=== PATIENT | female | born 1960 | race Caucasian/White ===

== ENCOUNTER 2018-03-18 06:13 | Day surgery (SDC) | payer MEDICAID ==
[~2018-03-18] VITALS: Ht 157.5 cm; Wt 50.3 kg
[~2018-03-18 06:13] MED LIST: ALBUAER3 IN; CITA-73 PO; CYCL1TAB18 PO; GABA300C10 PO; HYDR-531 PO; LORA-654 PO; SIMV-13 PO; TRAZ150T79 PO
[2018-03-18] MEDS ORDERED: VANCOMYCIN HCL 1000 MG VL ONE (06:50)
[2018-03-18] MEDS ORDERED: BUPIVACAINE 0.25% INJ 50ML VIAL ONE (07:20)
[2018-03-18] MEDS ORDERED: LIDOCAINE 1% HCL (LOCAL ANESTH.) INJ 20ML MDV ONE (07:20)
[2018-03-18] MEDS ORDERED: SUCCINYLCHOLINE CHLORIDE 20 MG/ML 10ML VIAL IV ONE (07:22)
[2018-03-18] MEDS ORDERED: LIDOCAINE 1% INJ PF 5ML AMP ONE (07:22)
[2018-03-18] MEDS ORDERED: MIDAZOLAM HCL 1MG/1ML-2 ML VIAL ONE (07:25)
[2018-03-18] MEDS ORDERED: PROPOFOL 10 MG/ML 20 ML IV ONE (07:30)
[2018-03-18] MEDS ORDERED: METOCLOPRAMIDE HCL 5MG/ml INJ 2ml VIAL ONE (07:31)
[2018-03-18] MEDS ORDERED: fentaNYL CITRATE 100 MCG/2 ML VL ONE (07:37)
[2018-03-18] MEDS ORDERED: NALOXONE HCL 0.4 MG/ML VIAL IV PRN (07:45)
[2018-03-18] MEDS ORDERED: HYDROmorphone HCL 2 MG/ML VL IV PRN ×2 (07:45)
[2018-03-18] MEDS ORDERED: ONDANSETRON HCL 4 MG/2 ML VIAL IV ONE (07:45)
[2018-03-18] MEDS ORDERED: ePHEDrine SULFATE 50 MG/ML AMP ONE (08:00)
[2018-03-18 09:26] VITALS: BP 110/71
== END 2018-03-18 09:38 | disposition home or self-care (01) ==
LOC: SUR 06:13
PROVIDERS: ATTEND Orthopaedic Surgery Adult Reconstructive Orthopaedic Surgery
DX: G56.02 Carpal tunnel syndrome, left upper limb (principal); M65.4 Radial styloid tenosynovitis [de Quervain]; F17.210 Nicotine dependence, cigarettes, uncomplicated; J44.9 Chronic obstructive pulmonary disease, unspecified; I34.1 Nonrheumatic mitral (valve) prolapse; E78.00 Pure hypercholesterolemia, unspecified; M19.90 Unspecified osteoarthritis, unspecified site; G62.9 Polyneuropathy, unspecified; Z88.0 Allergy status to penicillin; Z90.49 Acquired absence of other specified parts of digestive tract; Z98.890 Other specified postprocedural states; Z79.891 Long term (current) use of opiate analgesic; Z79.899 Other long term (current) drug therapy; Z82.49 Family history of ischemic heart disease and other diseases of the circulatory system; Z83.3 Family history of diabetes mellitus; Z82.61 Family history of arthritis; Z84.89 Family history of other specified conditions; Z80.3 Family history of malignant neoplasm of breast; Z82.5 Family history of asthma and other chronic lower respiratory diseases
CPT/HCPCS: 25000; 29848; J1170; J2765; J3010; J3370; J7050; J0330; J2001; J2250; J2704; J3490